=== PATIENT | male | born 1970 | race Caucasian/White ===

== ENCOUNTER 2017-02-12 11:03 | Emergency (ER) | payer MEDICAID, MEDICARE ==
[~2017-02-12] VITALS: Ht 158.8 cm; Wt 63.6 kg
[~2017-02-12 11:03] MED LIST: ACET325T51 PO; BACL10TA PO; CITA40TA PO; CLIN-78 PO; CLON0.1T PO; DEP500ER PO; GABA-504 PO; GABA400C PO; GABA600T PO; HYDR-4003 PO; IBUP800T28 PO; NAPR500T PO; NPR500T PO; OXYC10TA8 PO; OXYC1TAB24 PO; SULF1TAB7 PO; TRAZ-118 PO
[2017-02-12 11:15] VITALS: BP 152/93; PULSE 91; RESP 18; O2SAT 97
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
--- NOTE | 2017-02-12 12:10 | DRSVH ---
PROCEDURE: X-RAY RIGHT RIBS INCLUDEING PA CHEST, MINUMUM THREE VIEWS ([id number]) INDICATIONS: right third rib tenderness TECHNIQUE: 2 views of the Right ribs were acquired, along with a single view chest. COMPARISON: [facility], CR, XR CHEST 2VW, 06/27/2015, 12:57. FINDINGS: Surgical changes and devices: None. Bones and chest wall: Subacute/healing fractures involving the anterolateral 4th, 5th, 6th, and 7th r ibs are present. No suspicious bony lesions. Overlying soft tissues appear unremarkable. 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 Lungs and pleura: No pleural effusions or pneumothorax. Lungs appear clear. Mediastinum: Mediastinal contours appear normal. Heart size is normal. There is aortic atheroscler osis. IMPRESSION: 1. Subacute/healing 4th through 7th right rib fractures. 2. No pneumothorax. 3. Aortic atherosclerosis. Dictated by: Marlon Mccauley M.D. on 02/12/2017 at 11:06 Approved by: Marlon Mccauley M.D. on 02/12/2017 at 11:08
[2017-02-12] MEDS ORDERED: NPR500T PO (12:58)
[2017-02-12 13:11] VITALS: BP 133/86; PULSE 77; RESP 16; O2SAT 99
== END 2017-02-12 12:58 | disposition home or self-care (01) ==
LOC: SED 11:03
DX: S20.211A Contusion of right front wall of thorax, initial encounter (principal); V13.4XXA Pedal cycle driver injured in collision with car, pick-up truck or van in traffic accident, initial encounter; Y93.55 Activity, bike riding; Y92.410 Unspecified street and highway as the place of occurrence of the external cause; Y99.8 Other external cause status; R03.0 Elevated blood-pressure reading, without diagnosis of hypertension; F17.200 Nicotine dependence, unspecified, uncomplicated; Z88.8 Allergy status to other drugs, medicaments and biological substances
CPT/HCPCS: 71101; 96372; 99284; J1885

== ENCOUNTER 2017-02-19 08:01 | Emergency (ER) | payer MEDICAID, MEDICARE ==
[~2017-02-19] VITALS: Ht 162.6 cm; Wt 65.9 kg
[2017-02-19 08:13] VITALS: BP 125/84; PULSE 91; RESP 16; O2SAT 97
--- NOTE | 2017-02-19 08:21 | ED.REPORT ---
HPI-Extremity Problem Upper Date of Service February 19, 2017 ED Provider: Kleber Pitt DO A 46 year old male with a history of MRSA and substance abuse presents to the ED complaining of a possible infection of his right hand. The pt has an open wound on this hand that appeared two days ago and recently began draining. The pt was seen in the ED one week ago for similar symptoms and was given an antibiotic prescription, but states that he lost the prescription before getting it filled. Nursing Notes Stated Complaint: POSS INFECTION ON HAND Chief Complaint: Skin Rash/Abscess Nursing Notes Reviewed: Yes Allergies: Coded Allergies: No Known Allergies (Unverified , 02/19/17) Scheduled Baclofen (Baclofen) 10 Mg Tablet 10 MG PO BID Citalopram Hydrobromide (Celexa) 40 Mg Tablet 40 MG PO DAILY Clindamycin (Clindamycin) 300 Mg Capsule 300 MG PO QID Divalproex ER (Depakote ER) 500 Mg Tablet 1,000 MG PO BID *DAILY USE ONLY* Swallowed whole without chewing to avoid local irritation of the mouth and throat. Gabapentin (Neurontin) 400 Mg Capsule 400 MG PO TID Gabapentin (Neurontin) 600 Mg Tablet 600 MG PO TID Gabapentin (Gabapentin) 400 Mg Capsule 400 MG PO TID Sulfamethoxazole/Trimeth 800-160 mg (Bactrim DS) 1 Each Tablet 1 TABLET PO BID Sulfamethoxazole/Trimeth 800-160 mg (Bactrim DS) 1 Each Tablet 1 TABLET PO BID Scheduled PRN Acetaminophen (Acetaminophen) 325 Mg Tablet 650 MG PO QID PRN PRN For Pain Clonidine (Clonidine) 0.1 Mg Tablet 0.1 MG PO TID PRN PRN Withdrawal Symptoms Hydrocodone-Acetaminophen 5-325 mg (Hydrocodone-Acetaminophen 5-325 mg) 1 Each Tablet 1-2 TABLET PO Q4H PRN PRN For Pain Hydrocodone-Acetaminophen 5-325 mg (Hydrocodone-Acetaminophen 5-325 mg) 1 Each Tablet 1 TABLET PO Q4H PRN PRN For Pain Ibuprofen (Ibuprofen) 800 Mg Tablet 800 MG PO TID PRN PRN For Pain Naproxen (Naproxen) 500 Mg Tab 500 MG PO BID PRN PRN For Pain Naproxen (Naprosyn) 500 Mg Tablet 500 MG PO BID PRN PRN For Pain Naproxen (Naproxen) 500 Mg Tab 500 MG PO BID PRN PRN For Pain Trazodone (Trazodone) 100 Mg Tablet 200 MG PO HS PRN PRN For Insomnia oxyCODONE (oxyCODONE) 10 Mg Tablet 10 MG PO Q6H PRN PRN For Pain oxyCODONE-Acetaminophen 5-325 mg (oxyCODONE-Acetaminophen 5-325 mg) 1 Each Tablet 1-2 TAB PO Q6H PRN PRN For Pain General Time Seen by MD: 08:20 Chief Complaint Other (Possible right hand infection) Hx Obtained From: Patient Arrived By: Walk-in Onset Occurred: 2 days ago Recent Healthcare: No recent hospitalization, Recent doctor visit Similar Sx Previous: Yes Past Medical History Past Medical History Hepatitis C [facility] been [facility] abuse Past Surgical History Right hand surgery Family History noncontributory Smoking History Current Every Day Smoker Social History Alcohol Use: "Social" Drug Use: Meth, THC Other Social History: Poor social support, Homeless Ambulatory Status Independent Review of Systems Musculoskeletal: Reports: Extremity pain (right hand), Denies: Back pain, Neck pain Complete sys rev & neg: except as marked. Respiratory: Denies: Non-productive cough, Shortness of breath Cardiovascular: Denies: Chest pain Physical Exam Initial Vital Signs Vital Signs (First) Date Time Temp Pulse Resp B/P Pulse Ox O2 Delivery O2 Flow Rate FiO2 02/19/17 08:13 36.6 91 16 125/84 97 Room Air Initial VS: Reviewed General/Constitutional: Awake, Alert Neck: Supple, Full range of motion Respiratory / Chest: Atraumatic, Breath sounds NL, Breath sounds = bilat, No respiratory distress Cardiovascular: Heart rate NL, Regular rhythm, Heart sounds NL Upper Extremity / MS: Full range of motion Skin: Color NL, Warm, Dry multiple infected hair follicles at various stages of healing more prominent on the arms but also present on the ears and back of the neck no induration or fluctuance does not appear to need I&D Neurologic: Oriented X3, Speech NL, No motor deficits, No sensory deficits Head / Eyes: Normocephalic, PERRL, EOMI ENT: Airway patent, Mucous membranes moist Abdomen: Atraumatic, Soft, Non-tender Back: Atraumatic, Full range of motion Lower Extremity / Pelvis / MS: Atraumatic, Full range of motion Psychiatric: Affect NL, Mood NL Re-Eval/Medical Decision Source of Hx: Old records Re-Evaluation/Progress : Time of Eval: 08:20 Patient Status: Condition improved Re-Evaluation/Progress Note: Pt informed of the diagnosis and plan for discharge during the initial interview. Counseled Regarding: Diagnosis, Need for follow-up, When/why to return to ED Discharge & Departure Impression: Primary Impression: Folliculitis Disposition: Home Discharge Condition All VS Reviewed: Yes Condition: Stable Additional Instructions: Keep the areas clean and dry, avoid contact with others as this is likely contagious. Avoid sharing linens or towels. Take Bactrim as prescribed. Follow up with the primary care doctor for repeat evaluation. The ER is always available for any life-threatening emergencies. Referrals: [facility] [place] Attestation Portions of this note were transcribed by Colt Wilkinson. I, Dr. Pitt personally performed the history, physical exam and medical decision-making; I reviewed and confirmed the accuracy of the information in the transcribed note. Signed by: Damien Marcos, 02/19/2017 and 0844. copies to: [facility] Kleber Pitt DO February 19, 2017 08:21 COLT WILKINSON February 19, 2017 08:42
[2017-02-19] MEDS ORDERED: Trimethoprim-Sulfa 160 mg-800 mg Tablet PO ONE (08:30)
[2017-02-19] MEDS ORDERED: SULF1TAB7 PO (08:32)
== END 2017-02-19 09:08 | disposition home or self-care (01) ==
LOC: SED 08:01
DX: L73.9 Follicular disorder, unspecified (principal); F17.200 Nicotine dependence, unspecified, uncomplicated; Z86.14 Personal history of Methicillin resistant Staphylococcus aureus infection; Z98.890 Other specified postprocedural states; Z59.0 Homelessness

== ENCOUNTER 2017-03-08 09:34 | Emergency (ER) | payer MEDICARE, MEDICAID ==
[~2017-03-08] VITALS: Ht 158.8 cm; Wt 63.6 kg
[2017-03-08 09:35] VITALS: BP 141/86; PULSE 83; RESP 16; O2SAT 98
--- NOTE | 2017-03-08 09:45 | ED.REPORT ---
HPI-Extremity Problem Upper Date of Service March 08, 2017 ED Provider: Sai Hernandez MD The patient is a 46 year old male who presents to the emergency department complaining of a laceration injury to his left palm. The patient was working with a pocket knife when it came across his left palm and cut it. He denies any other injuries or trauma. His tetanus is not up to date. Nursing Notes Stated Complaint: LACERATION ON LEFT HAND Chief Complaint: Extremity Trauma Nursing Notes Reviewed: Yes Allergies: Coded Allergies: No Known Allergies (Unverified , 02/19/17) Scheduled Baclofen (Baclofen) 10 Mg Tablet 10 MG PO BID Citalopram Hydrobromide (Celexa) 40 Mg Tablet 40 MG PO DAILY Clindamycin (Clindamycin) 300 Mg Capsule 300 MG PO QID Divalproex ER (Depakote ER) 500 Mg Tablet 1,000 MG PO BID *DAILY USE ONLY* Swallowed whole without chewing to avoid local irritation of the mouth and throat. Gabapentin (Neurontin) 400 Mg Capsule 400 MG PO TID Gabapentin (Neurontin) 600 Mg Tablet 600 MG PO TID Gabapentin (Gabapentin) 400 Mg Capsule 400 MG PO TID Sulfamethoxazole/Trimeth 800-160 mg (Bactrim DS) 1 Each Tablet 1 TABLET PO BID Sulfamethoxazole/Trimeth 800-160 mg (Bactrim DS) 1 Each Tablet 1 TABLET PO BID Scheduled PRN Acetaminophen (Acetaminophen) 325 Mg Tablet 650 MG PO QID PRN PRN For Pain Clonidine (Clonidine) 0.1 Mg Tablet 0.1 MG PO TID PRN PRN Withdrawal Symptoms Hydrocodone-Acetaminophen 5-325 mg (Hydrocodone-Acetaminophen 5-325 mg) 1 Each Tablet 1-2 TABLET PO Q4H PRN PRN For Pain Hydrocodone-Acetaminophen 5-325 mg (Hydrocodone-Acetaminophen 5-325 mg) 1 Each Tablet 1 TABLET PO Q4H PRN PRN For Pain Ibuprofen (Ibuprofen) 800 Mg Tablet 800 MG PO TID PRN PRN For Pain Naproxen (Naproxen) 500 Mg Tab 500 MG PO BID PRN PRN For Pain Naproxen (Naprosyn) 500 Mg Tablet 500 MG PO BID PRN PRN For Pain Naproxen (Naproxen) 500 Mg Tab 500 MG PO BID PRN PRN For Pain Trazodone (Trazodone) 100 Mg Tablet 200 MG PO HS PRN PRN For Insomnia oxyCODONE (oxyCODONE) 10 Mg Tablet 10 MG PO Q6H PRN PRN For Pain oxyCODONE-Acetaminophen 5-325 mg (oxyCODONE-Acetaminophen 5-325 mg) 1 Each Tablet 1-2 TAB PO Q6H PRN PRN For Pain General Time Seen by MD: 09:44 Chief Complaint Hand Injury left Hx Obtained From: Patient Arrived By: Walk-in Onset Occurred: Just prior to arrival Symptom Duration: Since onset Location: : Hand left Quality: Painful Severity: Current: Moderate Severity: Maximum: Moderate Recent Healthcare: No recent doctor visit, No recent hospitalization Similar Sx Previous: No Past Medical History Past Medical History Hepatitis C Has been to [facility] from drug abuse Past Surgical History Right hand surgery Family History noncontributory Smoking History Current Every Day Smoker Social History Alcohol Use: "Social" Drug Use: Meth, THC Other Social History: Poor social support, Local resident, Homeless Ambulatory Status Independent Review of Systems Review of Systems Note: +laceration Musculoskeletal: Reports: Extremity pain Complete sys rev & neg: except as marked. Physical Exam Initial Vital Signs Vital Signs (First) Date Time Temp Pulse Resp B/P Pulse Ox O2 Delivery O2 Flow Rate FiO2 03/08/17 09:35 36.3 83 16 141/86 98 Room Air Initial VS: Reviewed Head / Eyes: Atraumatic, Normocephalic, PERRL ENT: Mucous membranes moist, Conjunctiva normal, No scleral icterus Neck: Supple, Non-tender, Full range of motion Respiratory: Breath sounds normal, Clear to auscultation, No respiratory distress Cardiovascular: Regular rate & rhythm, Heart sounds normal, Intact distal pulses Abdomen / GI: Soft, Non-tender, No guarding, No rebound, No distention Lower Extremities: Vascular intact, Neuro intact, No swelling, No tenderness Neurologic: Alert, Oriented, Nonfocal Psychiatric: Mood/affect normal, Behavior normal, Normal thought content General/Constitutional: Awake, Alert Skin: Atraumatic, Color NL, No rash Rash / Lesion Notes: He has a 4 cm superficial laceration to his left palm. The middle 2 cm extend down to the subcutaneous tissue. The remainder of the laceration does not extend through the dermis. Procedures Laceration Management Laceration Management: Wound was closed with steri strips. Time: 09:53 Procedure Performed by: ED physician Consent / Setup / Site Prep: Consent from patient, Time-out performed, Hand hygiene observed Location of Wound: left palm Wound Length: 4 cm Digital Block: No Wound Preparation: Normal saline Debridement: None Irrigation: Copious Foreign Body Explore / Removal: Explored for foreign body Undermining / Margins: Flaps aligned Closure Layers: 1 Post-Procedure / Complications: Antibiotic oint applied, Dressing applied, No complications, Condition improved, Tolerated procedure well, Patient stable Re-Eval/Medical Decision Med Decision/Clinical Course Patient is a generally healthy 46-year-old male who presents with a laceration to the palm of his left hand. The laceration is relatively superficial extending just to the subcutaneous tissue in one spot and overall is quite well approximated without any sutures present. Wound copiously irrigated and no foreign body present. No neurovascular injury present. No other associated injuries. Wound cleaned with Betadine and skin edges approximated using Steri- Strips as documented above. Procedure tolerated well. At this time, I feel that the patient is appropriate for discharge. He will remove Steri-Strips in one week. Tetanus status was updated. Prior to discharge follow-up and return precautions were reviewed in detail with the patient who verbalized understanding and agreement with the plan. The patient was discharged in stable condition. Source of Hx: Old records Re-Evaluation/Progress : Time of Eval: 10:05 Re-Evaluation/Progress Note: Discussed plan for discharge. All questions were addressed. Counseled Regarding: Diagnosis, Need for follow-up, When/why to return to ED Discharge & Departure Impression: Primary Impression: Laceration Disposition: Home Discharge Condition All VS Reviewed: Yes Condition: Stable Patient Instructions: Laceration (ED) Additional Instructions: Thank you for seeking care at the emergency room. Our primary goal today in the ED was to evaluate you for any life-threatening conditions. Your evaluation was reassuring. Try to keep the steri strips in place for 1 week. Make sure to keep the wound clean and covered. You were given a tetanus update in the emergency department today. You should return to the ED immediately if you develop increased pain, swelling or redness, drainage, fevers, chills, or any other concerning signs or symptoms. Thank you for letting us partake in your care today. Referrals: [facility] (PCP) Scribe Attestation Portions of this note were transcribed by Whitney Joe. I, Dr. Hernandez personally performed the history, physical exam and medical decision-making; I reviewed and confirmed the accuracy of the information in the transcribed note. Signed by: Damien Martin, 03/08/2017 at 1015. Sai Hernandez MD March 08, 2017 09:45 Whitney Joe March 08, 2017 09:52
[2017-03-08] MEDS ORDERED: TdaP Vaccine 0.5 mL Inj IM ONE (09:50)
== END 2017-03-08 10:10 | disposition home or self-care (01) ==
LOC: SED 09:58
DX: S61.412A Laceration without foreign body of left hand, initial encounter (principal); W26.0XXA Contact with knife, initial encounter; Y93.89 Activity, other specified; Y92.009 Unspecified place in unspecified non-institutional (private) residence as the place of occurrence of the external cause; Y99.8 Other external cause status; F17.200 Nicotine dependence, unspecified, uncomplicated; Z86.19 Personal history of other infectious and parasitic diseases; Z59.0 Homelessness; Z23 Encounter for immunization

== ENCOUNTER 2017-04-10 06:02 | Emergency (ER) | payer MEDICARE, MEDICAID ==
[~2017-04-10] VITALS: Ht 157.5 cm; Wt 63.6 kg
[2017-04-10 06:08] VITALS: BP 165/89; PULSE 74; RESP 20; O2SAT 100
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
[2017-04-10] MEDS ORDERED: 0.9% Sodium Chloride 1,000 ML IV ONE (06:39)
[2017-04-10] MEDS ORDERED: HYDROcodone-APAP 5-325 mg Tablet PO ONE (06:40)
[2017-04-10] MEDS ORDERED: Ondansetron 2 mg/mL 2 mL Inj IVPUSH ONE (06:40)
[2017-04-10] MEDS ORDERED: IBUP-1827 PO (11:23)
== END 2017-04-10 06:57 | disposition left against medical advice (07) ==
LOC: EDBD 06:02 → SED 06:02 → EDUNIT# 06:02 → SED 06:57
DX: R07.89 Other chest pain (principal); M54.2 Cervicalgia; F19.10 Other psychoactive substance abuse, uncomplicated; V18.0XXA Pedal cycle driver injured in noncollision transport accident in nontraffic accident, initial encounter; Y93.55 Activity, bike riding; Y92.828 Other wilderness area as the place of occurrence of the external cause; Y99.8 Other external cause status; F17.200 Nicotine dependence, unspecified, uncomplicated; Z79.899 Other long term (current) drug therapy

== ENCOUNTER 2017-04-10 07:25 | Emergency (ER) | payer MEDICARE, MEDICAID ==
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
[2017-04-10] MEDS ORDERED: HYDROmorphone 0.5 mg/0.5 mL iSecure Syringe IVPUSH PRN (09:20)
[2017-04-10 09:27] LABS: BASOPHILS % (AUTO) 0.2 % (0-3); EOSINOPHILS % (AUTO) 0.2 % (0-5); MONOCYTES % (AUTO) 6.3 % (4-12); Mean Corpuscular Hemoglobin 30.5 pg (27.0-35.0); NEUTROPHILS % (AUTO) 79.5 % (40-74); Platelet Count 242 bil/L (150-400)
[2017-04-10 09:53] LABS: INR 0.94 ratio
[2017-04-10] MEDS ORDERED: IBUP-1827 PO (11:23)
== END 2017-04-10 11:37 | disposition home or self-care (01) ==
LOC: SED 07:25
DX: S22.41XA Multiple fractures of ribs, right side, initial encounter for closed fracture (principal); V19.9XXA Pedal cyclist (driver) (passenger) injured in unspecified traffic accident, initial encounter; Y92.410 Unspecified street and highway as the place of occurrence of the external cause; Y93.55 Activity, bike riding; Y99.8 Other external cause status; R45.1 Restlessness and agitation; F17.200 Nicotine dependence, unspecified, uncomplicated; Z53.20 Procedure and treatment not carried out because of patient's decision for unspecified reasons; Z91.19 Patient's noncompliance with other medical treatment and regimen; Z86.19 Personal history of other infectious and parasitic diseases; Z59.0 Homelessness
CPT/HCPCS: 36415; 71020; 80053; 85025; 85610; 86850; 96374; 99284; G0480; J1170

== ENCOUNTER 2017-05-30 13:19 | Emergency (ER) | payer MEDICARE ==
[~2017-05-30] VITALS: Ht 158.8 cm; Wt 63.6 kg
[~2017-05-30 13:19] MED LIST changes: +IBUP-1827 PO
[2017-05-30 13:36] VITALS: BP 138/91; PULSE 64; RESP 16; O2SAT 99
--- NOTE | 2017-05-30 16:04 | ED.REPORT ---
HPI-Rash / Abscess Date of Service May 30, 2017 ED Provider: Dr. Garcia Pt is a 47 year old male with a hx of MRSA presenting to the ED complaining of diffuse rash with purulence onset a few days ago. He denies fever, chills, nausea, vomiting, SOB, or wheezing. Nursing Notes Stated Complaint: POSS NECK/LEG MRSA Chief Complaint: General Complaint Nursing Notes Reviewed: Yes Allergies: Coded Allergies: No Known Allergies (Unverified , 02/19/17) Scheduled Baclofen (Baclofen) 10 Mg Tablet 10 MG PO BID Citalopram Hydrobromide (Celexa) 40 Mg Tablet 40 MG PO DAILY Clindamycin (Clindamycin) 300 Mg Capsule 300 MG PO QID Divalproex ER (Depakote ER) 500 Mg Tablet 1,000 MG PO BID *DAILY USE ONLY* Swallowed whole without chewing to avoid local irritation of the mouth and throat. Gabapentin (Neurontin) 400 Mg Capsule 400 MG PO TID Gabapentin (Neurontin) 600 Mg Tablet 600 MG PO TID Gabapentin (Gabapentin) 400 Mg Capsule 400 MG PO TID Sulfamethoxazole/Trimeth 800-160 mg (Bactrim DS) 1 Each Tablet 1 TABLET PO BID Sulfamethoxazole/Trimeth 800-160 mg (Bactrim DS) 1 Each Tablet 1 TABLET PO BID Sulfamethoxazole/Trimeth 800-160 mg (Bactrim DS) 1 Each Tablet 1 TABLET PO BID Scheduled PRN Acetaminophen (Acetaminophen) 325 Mg Tablet 650 MG PO QID PRN PRN For Pain Clonidine (Clonidine) 0.1 Mg Tablet 0.1 MG PO TID PRN PRN Withdrawal Symptoms Hydrocodone-Acetaminophen 5-325 mg (Hydrocodone-Acetaminophen 5-325 mg) 1 Each Tablet 1-2 TABLET PO Q4H PRN PRN For Pain Hydrocodone-Acetaminophen 5-325 mg (Hydrocodone-Acetaminophen 5-325 mg) 1 Each Tablet 1 TABLET PO Q4H PRN PRN For Pain Ibuprofen (Ibuprofen) 800 Mg Tablet 800 MG PO TID PRN PRN For Pain Ibuprofen (Ibuprofen) 600 Mg Tablet 600 MG PO QID PRN PRN For Pain Naproxen (Naproxen) 500 Mg Tab 500 MG PO BID PRN PRN For Pain Naproxen (Naprosyn) 500 Mg Tablet 500 MG PO BID PRN PRN For Pain Naproxen (Naproxen) 500 Mg Tab 500 MG PO BID PRN PRN For Pain Trazodone (Trazodone) 100 Mg Tablet 200 MG PO HS PRN PRN For Insomnia oxyCODONE (oxyCODONE) 10 Mg Tablet 10 MG PO Q6H PRN PRN For Pain oxyCODONE-Acetaminophen 5-325 mg (oxyCODONE-Acetaminophen 5-325 mg) 1 Each Tablet 1-2 TAB PO Q6H PRN PRN For Pain General Time Seen by MD: 16:04 Chief Complaint Rash Hx Obtained From: Patient Arrived By: Walk-in Onset Occurred: 3 days ago Symptom Duration: Since onset Location: : Generalized Severity: Current: No pain currently Severity: Maximum: No pain Recent Healthcare: No recent doctor visit, No recent hospitalization Similar Sx Previous: Yes Past Medical History Past Medical History Hepatitis C Has been to [facility] for [facility]ing from drug abuse MRSA Past Surgical History Right hand surgery Family History noncontributory Smoking History Current Every Day Smoker Social History Alcohol Use: "Social" Drug Use: Meth, THC Other Social History: Poor social support, Local resident, Homeless Ambulatory Status Independent Review of Systems Constitutional: Denies: Chills, Fever Respiratory: Denies: Shortness of breath, Wheezing GI: Denies: Nausea, Vomiting Skin: Reports Rash Complete sys rev & neg: except as marked. Physical Exam Initial Vital Signs Vital Signs (First) Date Time Temp Pulse Resp B/P Pulse Ox O2 Delivery O2 Flow Rate FiO2 05/30/17 13:36 37 64 16 138/91 99 Room Air Initial VS: Reviewed Head / Eyes: Atraumatic, Normocephalic, PERRL ENT: Mucous membranes moist, Conjunctiva normal, No scleral icterus Neck: Supple, Non-tender, Full range of motion Respiratory: No respiratory distress Abdomen / GI: No distention Extremities: Vascular intact, Neuro intact, No swelling, No tenderness Neurologic: Alert, Oriented, Nonfocal Psychiatric: Mood/affect normal, Behavior normal, Normal thought content General/Constitutional: Awake, Alert, No acute distress Skin: Warm, Dry Excoriations to the left face, neck, and bilateral shins. No exudate or discharge. No surrounding errythema except on the 1 cm excoriation on the right collins. No fluctuance or discharge. Re-Eval/Medical Decision Med Decision/Clinical Course Cellulitis right collins. No abscess evident. No signs of sepsis. Vital signs are stable. Patient be treated with Bactrim. Return precautions given and follow up with primary doctor 2 days. Re-Evaluation/Progress : Time of Eval: 16:22 Patient Status: Condition improved Re-Evaluation/Progress Note: Discussed plan for discharge. Pt understands and agrees with plan. All pt questions addressed. Counseled Regarding: Diagnosis, Lab results, Need for follow-up, When/why to return to ED Discharge & Departure Impression: Primary Impression: Cellulitis Site of cellulitis: unspecified site Qualified Code: L03.90 - Cellulitis, unspecified Disposition: Home Discharge Condition All VS Reviewed: Yes Condition: Improved Patient Instructions: Cellulitis (ED) Additional Instructions: Take Bactrim as prescribed. Follow up with your primary care doctor in the next 2 days. Return to the ER for any fever, nausea, vomiting, or discharge. Referrals: [facility] Scribe Attestation Portions of this note were transcribed by Meryl Cade. I, Dr. Garcia personally performed the history, physical exam and medical decision-making; I reviewed and confirmed the accuracy of the information in the transcribed note. Signed by: Damien Villarreal, 05/30/2017. copies to: [facility] Cruz Garcia MD May 30, 2017 16:04 MERYL CADE May 30, 2017 16:18
[2017-05-30] MEDS ORDERED: SULF1TAB7 PO (16:37)
[2017-05-30 16:53] VITALS: BP 131/71; PULSE 68; RESP 16; O2SAT 98
== END 2017-05-30 16:53 | disposition home or self-care (01) ==
LOC: SED 13:19
DX: L03.115 Cellulitis of right lower limb (principal); F17.200 Nicotine dependence, unspecified, uncomplicated; Z86.19 Personal history of other infectious and parasitic diseases; Z86.14 Personal history of Methicillin resistant Staphylococcus aureus infection; Z59.0 Homelessness

== ENCOUNTER 2017-07-07 02:42 | Emergency (ER) | payer MEDICARE ==
[~2017-07-07] VITALS: Ht 157.5 cm; Wt 63.6 kg
[2017-07-07 02:47] VITALS: RESP 20
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
[2017-07-07] MEDS ORDERED: Lidocaine 1%/Epi 1:100,000 30 mL MDV INFILTRATE ONE (03:15)
[2017-07-07] MEDS ORDERED: oxyCODONE-Acetamin 10-325 mg Tablet PO ONE (03:30)
--- NOTE | 2017-07-07 09:40 | DRSVH ---
PROCEDURE: CT BRAIN WITHOUT CONTRAST ([id number]) INDICATIONS: head injury TECHNIQUE: Noncontrast 4.5 mm thick angled axial sections acquired from the foramen magnum to the vertex, with c oronal reformats. COMPARISON: [facility], CT, CT BRAIN WO CON, 03/08/2016, 10:55. FINDINGS: Image quality: Excellent. CSF spaces: Basal cisterns are patent. No extra-axial fluid collections. Ventricles are normal in size and shape. Brain: No midline shift. No intracranial masses or hemorrhage. Maldonado-white matter interface is norm al. Skull and face: Calvarium and visualized facial bones are intact, without suspicious lesions. Right frontal scalp hematoma. Sinuses: Visualized sinuses demonstrate mild to moderate scattered areas of pansinus mucosal thicken ing. Frontal sinuses are incidentally noted to be aplastic. IMPRESSION: 1. No acute intracranial process. 2. Right frontal scalp hematoma. Dictated by: Cordelia Morrissey M.D. on 07/07/2017 at 9:37 Approved by: Cordelia Morrissey M.D. on 07/07/2017 at 9:38
== END 2017-07-07 05:21 | disposition home or self-care (01) ==
LOC: SED 02:42 → EDBD 02:42 → SED 05:21
DX: S00.03XA Contusion of scalp, initial encounter (principal); S01.111A Laceration without foreign body of right eyelid and periocular area, initial encounter; V18.4XXA Pedal cycle driver injured in noncollision transport accident in traffic accident, initial encounter; Y93.55 Activity, bike riding; Y99.8 Other external cause status; Y92.410 Unspecified street and highway as the place of occurrence of the external cause; F17.200 Nicotine dependence, unspecified, uncomplicated; F12.10 Cannabis abuse, uncomplicated; F15.10 Other stimulant abuse, uncomplicated; Z86.14 Personal history of Methicillin resistant Staphylococcus aureus infection; Z59.0 Homelessness